=== PATIENT | female | born 1940 | race Caucasian/White ===

== ENCOUNTER 2020-01-02 19:16 | Emergency (ER) | payer OTHER, BC ==
[~2020-01-02] VITALS: Ht 172.7 cm; Wt 63.5 kg
[~2020-01-02 19:16] MED LIST: BACLOFEN20 MG PO; CELEXA 10 MG TA10 M1 PO; CELEXA20 MG PO; COLACE100 MG PO; FAMOTIDINE20 MG PO; IBUPROFEN 600600 M1 PO; LEVOTHYROXIN0.025 MG PO; LEVOTHYROXINE0.05 MG PO; LIORESAL 10 MG10 MG PO; LISINOPRIL20 MG PO; MECLIZINE HCL25 MG PO; NORCO 5-325 TA1 EACH PO; SENNA PO; SIMVASTATIN40 MG PO; TYLENOL325 MG PO
[2020-01-02 19:18] VITALS: BP 188/79
[2020-01-02] MEDS ORDERED: LEVO-T75 MCG PO (20:39)
[2020-01-02 23:05] VITALS: BP 100/38
--- NOTE | 2020-01-02 23:08 | NUR ---
MESSAGE LEFT FOR SISTER, ELLIE RUTH REGARDING PATIENT TRANSFER TO [facility] [address]. SISTER PHONE NUMBER IS [phone]
--- NOTE | 2020-01-02 23:18 | NUR ---
PAIN MEDICATION ADMINSITERED TO PATIENT PRIOR TO LEAVING WITH [facility]
== END 2020-01-02 23:04 | disposition short-term general hospital (02) ==
LOC: ER 19:16 → EROBS 21:22 → ER 23:04
DX: S42.291A Other displaced fracture of upper end of right humerus, initial encounter for closed fracture (principal); S02.602A Fracture of unspecified part of body of left mandible, initial encounter for closed fracture; S01.111A Laceration without foreign body of right eyelid and periocular area, initial encounter; E78.00 Pure hypercholesterolemia, unspecified; Z91.041 Radiographic dye allergy status; W18.39XA Other fall on same level, initial encounter; Y92.009 Unspecified place in unspecified non-institutional (private) residence as the place of occurrence of the external cause; Y93.89 Activity, other specified; Y99.8 Other external cause status